=== PATIENT | female | born 1985 | race Caucasian/White ===

== ENCOUNTER 2016-08-11 01:41 | Emergency (ER) | payer MEDICAID ==
[~2016-08-11] VITALS: Ht 160 cm; Wt 69.6 kg
[~2016-08-11 01:41] MED LIST: HYDR-3240 PO
[2016-08-11] MEDS ORDERED: DIPHENHYDRAMINE 25 MG CAPSULE PO ONE (02:30)
[2016-08-11] MEDS ORDERED: ACETAMINOPHEN 325 MG TABLET PO ONE (02:30)
[2016-08-11] MEDS ORDERED: ACETAMINOPHEN 500 MG TABLET ONE (02:35)
[2016-08-11] MEDS ORDERED: DIPHENHYDRAMINE 25 MG CAPSULE ONE (02:35)
[2016-08-11 02:42] VITALS: BP 122/79
== END 2016-08-11 02:43 | disposition home or self-care (01) ==
LOC: ED 02:36
DX: L08.9 Local infection of the skin and subcutaneous tissue, unspecified (principal); S00.461A Insect bite (nonvenomous) of right ear, initial encounter; Z88.6 Allergy status to analgesic agent; X58.XXXA Exposure to other specified factors, initial encounter; Y93.89 Activity, other specified; Y99.8 Other external cause status; Y92.89 Other specified places as the place of occurrence of the external cause
CPT/HCPCS: 99283; Q0163

== ENCOUNTER 2016-08-12 00:04 | Emergency (ER) | payer MEDICAID ==
[~2016-08-12] VITALS: Ht 154.9 cm; Wt 67.5 kg
[2016-08-12 00:17] VITALS: BP 116/79
[2016-08-12] MEDS ORDERED: DIPHENHYDRAMINE 25 MG CAPSULE ONE (01:05)
[2016-08-12] MEDS ORDERED: ACETAMINOPHEN 500 MG TABLET ONE (01:06)
[2016-08-12] MEDS ORDERED: SULFAMETH./TRIMETHOPRIM DS 800MG/160MG TABLET ONE (01:06)
[2016-08-12] MEDS ORDERED: SULFAMETH./TRIMETHOPRIM DS 800MG/160MG TABLET PO ONE (01:30)
[2016-08-12] MEDS ORDERED: DIPHENHYDRAMINE 25 MG CAPSULE PO ONE (01:30)
[2016-08-12] MEDS ORDERED: ACETAMINOPHEN 325 MG TABLET PO ONE (01:30)
== END 2016-08-12 01:21 | disposition home or self-care (01) ==
LOC: ED 01:02
DX: L03.811 Cellulitis of head [any part, except face] (principal)
CPT/HCPCS: 99284; Q0163

== ENCOUNTER 2016-08-16 18:45 | Emergency (ER) | payer MEDICAID ==
[~2016-08-16] VITALS: Ht 152.4 cm; Wt 69.2 kg
[2016-08-16] MEDS ORDERED: LIDOCAINE 1%, 20ML SQ ONE (19:00)
[2016-08-16] MEDS ORDERED: HYDROcodone/APAP 5/325 TABLET PO ONE (19:00)
[2016-08-16] MEDS ORDERED: LIDOCAINE 1%, 20ML ONE (19:05)
[2016-08-16] MEDS ORDERED: HYDROcodone/APAP 5/325 TABLET ONE (19:05)
[2016-08-16] MEDS ORDERED: OXYcodone/APAP 10/325MG TABLET ONE (19:54)
[2016-08-16] MEDS ORDERED: ONDANSETRON ODT 4 MG ONE (19:54)
[2016-08-16 20:00] VITALS: BP 109/46
[2016-08-16] MEDS ORDERED: OXYcodone/APAP 10/325MG TABLET PO ONE (20:00)
[2016-08-16] MEDS ORDERED: ONDANSETRON ODT 4 MG PO ONE (20:00)
== END 2016-08-16 20:26 | disposition home or self-care (01) ==
LOC: ED 20:00
DX: L02.811 Cutaneous abscess of head [any part, except face] (principal); J45.909 Unspecified asthma, uncomplicated
CPT/HCPCS: 10060; 99284; Q0162

== ENCOUNTER 2016-11-21 04:54 | Emergency (ER) | payer MEDICAID ==
[~2016-11-21] VITALS: Ht 152.4 cm; Wt 68.4 kg
[2016-11-21] MEDS ORDERED: ONDANSETRON 2MG/ML, 2ML ONE (05:27)
[2016-11-21] MEDS ORDERED: MORPHINE SULFATE 4 MG/ML, 1ML ONE (05:27)
[2016-11-21] MEDS ORDERED: SODIUM CHLORIDE FLUSH 10ML SYR IVF ONE (05:30)
[2016-11-21] MEDS ORDERED: ONDANSETRON 2MG/ML, 2ML IVPush ONE (05:30)
[2016-11-21] MEDS ORDERED: MORPHINE SULFATE 4 MG/ML, 1ML IVPush PRN (05:30)
[2016-11-21 05:32] LABS: PATH.CAST-FLAG NOT PRESENT; SPERM-FLAG NOT PRESENT; SRC-FLAG NOT PRESENT; XTAL-FLAG NOT PRESENT; YLC-FLAG NOT PRESENT
[2016-11-21 05:51] LABS: HEMATOCRIT 34.1 % (34.6-47.8); HEMOGLOBIN 10.6 g/dL (11.7-16.4); WHITE BLOOD COUNT 4.9 x10^3/uL (3.4-10)
[2016-11-21 05:55] LABS: BLOOD UREA NITROGEN 14 mg/dL (7-18)
[2016-11-21 06:02] LABS: ASPARTATE AMINO TRANSFERASE 18 U/L (15-37)
[2016-11-21 06:12] LABS: DAU SCREEN DISCLAIMER
[2016-11-21 06:28] LABS: DIFF TOTAL CELLS COUNTED 100 CELL DIFF
[2016-11-21 06:31] LABS: ANISOCYTOSIS 1+; HYPOCHROMIA 1+; MICROCYTOSIS 1+; VERIFY COUNTS? YES
[2016-11-21 08:14] VITALS: BP 104/64
== END 2016-11-21 08:27 | disposition home or self-care (01) ==
LOC: ED 05:13
DX: N30.90 Cystitis, unspecified without hematuria (principal); F15.129 Other stimulant abuse with intoxication, unspecified
CPT/HCPCS: 36415; 76830; 80053; 80307; 81001; 83690; 84703; 85025; 87086; 96374; 96375; 99285; J2405; G0479

== ENCOUNTER 2016-11-22 10:15 | Emergency (ER) | payer MEDICAID ==
[~2016-11-22] VITALS: Ht 152.4 cm; Wt 69.1 kg
[2016-11-22] MEDS ORDERED: SODIUM CHLORIDE 0.9% 1,000ML IVBOLUS ONE ×2 (11:00→13:00)
[2016-11-22] MEDS ORDERED: SODIUM CHLORIDE FLUSH 10ML SYR IVF ONE (11:00)
[2016-11-22] MEDS ORDERED: ONDANSETRON 2MG/ML, 2ML IVPush ONE (11:00)
[2016-11-22] MEDS ORDERED: ONDANSETRON 2MG/ML, 2ML ONE (11:19)
[2016-11-22 11:24] LABS: HEMATOCRIT 33.1 % (34.6-47.8); HEMOGLOBIN 10.6 g/dL (11.7-16.4); WHITE BLOOD COUNT 5.7 x10^3/uL (3.4-10)
[2016-11-22 11:36] LABS: ASPARTATE AMINO TRANSFERASE 41 U/L (15-37); BLOOD UREA NITROGEN 14 mg/dL (7-18)
[2016-11-22] MEDS ORDERED: CEFTRIAXONE PMX 1GM/50ML 50 ML IV ONE (13:00)
[2016-11-22] MEDS ORDERED: CEFTRIAXONE PMX 1GM/50ML 50 ML ONE (13:41)
[2016-11-22 15:06] VITALS: BP 111/67
== END 2016-11-22 15:08 | disposition home or self-care (01) ==
LOC: ED 10:48
DX: N30.90 Cystitis, unspecified without hematuria (principal); Z90.49 Acquired absence of other specified parts of digestive tract
CPT/HCPCS: 36415; 80053; 81001; 83690; 85025; 85610; 87086; 96361; 96365; 96375; 99285; J0696; J2405; J7030

== ENCOUNTER 2017-02-03 16:42 | Emergency (ER) | payer SELFPAY ==
[~2017-02-03] VITALS: Ht 152.4 cm; Wt 68.5 kg
[2017-02-03] MEDS ORDERED: HYDROmorphone 1 MG/ML, 1ML IV ONE (18:00)
[2017-02-03] MEDS ORDERED: HYDROmorphone 1 MG/ML, 1ML IM ONE (18:00)
[2017-02-03] MEDS ORDERED: HYDROmorphone 2 MG/ML, 1ML ONE (18:30)
[2017-02-03 20:30] VITALS: BP 111/62
== END 2017-02-03 20:33 | disposition home or self-care (01) ==
LOC: ED 20:05
DX: S63.502A Unspecified sprain of left wrist, initial encounter (principal); S54.10XA Injury of median nerve at forearm level, unspecified arm, initial encounter; J45.909 Unspecified asthma, uncomplicated; W22.09XA Striking against other stationary object, initial encounter; Y93.89 Activity, other specified; Y92.009 Unspecified place in unspecified non-institutional (private) residence as the place of occurrence of the external cause; Y99.8 Other external cause status
CPT/HCPCS: 29260; 73090; 73110; 73130; 96374; 99284; J1170